=== PATIENT | male | born 1940 | race Two or more races ===

== ENCOUNTER 2016-05-02 10:30 | Outpatient (CLI) | payer MEDICARE, OTHER | END 2016-05-02 23:59 | disposition home or self-care (01) | LOC: WOU 10:30 | PROVIDERS: ATTEND Podiatrist Foot & Ankle Surgery | DX: I87.312 Chronic venous hypertension (idiopathic) with ulcer of left lower extremity (principal); L97.821 Non-pressure chronic ulcer of other part of left lower leg limited to breakdown of skin; L84 Corns and callosities; M79.671 Pain in right foot; I73.9 Peripheral vascular disease, unspecified; I10 Essential (primary) hypertension; Z87.891 Personal history of nicotine dependence; Z80.9 Family history of malignant neoplasm, unspecified; Z82.3 Family history of stroke; Z82.49 Family history of ischemic heart disease and other diseases of the circulatory system | CPT/HCPCS: 11042; 11055; A6197; A6402 ==

== ENCOUNTER 2016-05-08 10:16 | Outpatient (CLI) | payer MEDICARE, OTHER | END 2016-05-08 23:59 | disposition home or self-care (01) | LOC: WOU 10:16 | PROVIDERS: ATTEND Podiatrist Foot & Ankle Surgery | DX: I87.312 Chronic venous hypertension (idiopathic) with ulcer of left lower extremity (principal); L97.821 Non-pressure chronic ulcer of other part of left lower leg limited to breakdown of skin; S81.802D Unspecified open wound, left lower leg, subsequent encounter; X58.XXXD Exposure to other specified factors, subsequent encounter; I73.9 Peripheral vascular disease, unspecified; I10 Essential (primary) hypertension; Z87.891 Personal history of nicotine dependence; Z82.3 Family history of stroke; Z82.49 Family history of ischemic heart disease and other diseases of the circulatory system; Z80.9 Family history of malignant neoplasm, unspecified | CPT/HCPCS: A6197; A6402; G0463 ==

== ENCOUNTER 2016-05-22 13:09 | Outpatient (CLI) | payer MEDICARE, OTHER | END 2016-05-22 23:59 | disposition home or self-care (01) | LOC: WOU 13:09 | PROVIDERS: ATTEND Podiatrist Foot & Ankle Surgery | DX: I87.322 Chronic venous hypertension (idiopathic) with inflammation of left lower extremity (principal); L84 Corns and callosities; L60.3 Nail dystrophy; M79.671 Pain in right foot; M79.672 Pain in left foot | CPT/HCPCS: A6209; A6402; G0463 ==